=== PATIENT | female | born 2000 ===

== ENCOUNTER 2021-04-17 08:46 | Outpatient (CLI) | payer OTHER, SELFPAY ==
--- NOTE | ~2021-04-17 | XR_ITS ---
EXAMINATION: XR thoracic spine 3V DATE: 04/17/2021 09:51 INDICATION: Scoliosis deformity of the spine TECHNIQUE: AP, lateral and lateral swimmer's views of the thoracic spine were obtained. COMPARISON: 10/04/2010 FINDINGS: There are 28 degrees of thoracic levoscoliosis measured from T2 through T6 and 27 degrees o f thoracic dextroscoliosis measured from T6 through T10. Mild thoracolumbar levocurvature is noted. T he visualized lungs are free of acute opacities. The cardiomediastinal silhouette is normal. IMPRESSION: 1. Thoracic scoliosis as detailed above. Reviewed, dictated and finalized at location B.
== END 2021-04-17 08:47 ==
PROVIDERS: PCP Nurse Practitioner Family; Visit Provider Nurse Practitioner Family
DX: M41.9 Scoliosis, unspecified (principal)
CPT/HCPCS: 72072